=== PATIENT | male | born 2000 | race Caucasian/White ===

== ENCOUNTER 2019-04-03 20:57 | Emergency (ER) | payer OTHER ==
[~2019-04-03] VITALS: Ht 177.8 cm; Wt 74.2 kg
[~2019-04-03 20:57] MED LIST: DOXY-214 PO; MOTS PO
[2019-04-03 21:07] VITALS: BP 122/56; PULSE 71; RESP 16; Ht 177.8 cm; Wt 74.2 kg
[2019-04-04] MEDS ORDERED: CEFTRIAXONE 1 GM INJ IM ONE (00:30)
[2019-04-04] MEDS ORDERED: LIDOCAINE 1% (MPF) 5 ML VIAL INJ ONE (00:30)
== END 2019-04-04 00:54 | disposition home or self-care (01) ==
LOC: FTE 20:57
DX: N50.811 Right testicular pain (principal); R36.9 Urethral discharge, unspecified
CPT/HCPCS: 36415; 76536; 76870; 80053; 81003; 83690; 85025; 87591; 96372; J0696; Z7502; Z7610